=== PATIENT | female | born 1980 ===

== ENCOUNTER 2019-01-19 06:25 | Inpatient (IN) | payer BC ==
[~2019-01-19] VITALS: Ht 157.5 cm; Wt 54.4 kg
[2019-01-19] VITALS (13 sets, daily range): BP systolic 95–107; BP diastolic 57–70
[~2019-01-19 06:25] MED LIST: NKM
[2019-01-19] MEDS ORDERED: cefOXitin Sod 2 GM in D5W 110 ML IVPB ONE (07:00)
[2019-01-19] MEDS ORDERED: Rocuronium Bromide 50mg/5ml Inj IV ONE (07:09)
[2019-01-19] MEDS ORDERED: fentaNYL 100 mcg/2 mL IV ONE ×2 (07:12→08:46)
[2019-01-19] MEDS ORDERED: Lidocaine 1% MPF 10mg/ml 5ml ONE (07:12)
[2019-01-19] MEDS ORDERED: Propofol 200mg/20ml IV ONE (07:12)
[2019-01-19] MEDS ORDERED: Midazolam 2mg/2ml Inj ONE (07:13)
[2019-01-19] MEDS ORDERED: Dexamethasone 4mg/ml vial ONE (07:13)
[2019-01-19] MEDS ORDERED: Ropivacaine 5mg/ml Vial 30ml INJ ONE (07:15)
[2019-01-19] MEDS ORDERED: Bupivacaine 0.5% Inj 30 ml vial INJ ONE (07:15)
--- NOTE | 2019-01-19 07:28 | Anethesia Preoperative Eval ---
Anesthesia Pre-op PMH/ROS General Date of Evaluation: Jan 19, 2019 Time of Evaluation: 07:26 Anesthesiologist: Yesenia Rowland CRNA ASA Score: ASA 2 Mallampati Score Class I : Soft palate, uvula, fauces, pillars visible Class II: Soft palate, uvula, fauces visible Class III: Soft palate, base of uvula visible Class IV: Only hard plate visible Mallampati Classification: Class I Surgeon: Sravan Diagnosis: Uterine fibroids Surgical Procedure: hysteroscopy, open myomectomy Anesthesia History: none Family History: no anesthesia problems Allergies: Coded Allergies: No Known Allergies (Unverified , 01/17/19) Medications: see eMAR Patient NPO?: Yes NPO Date: Jan 18, 2019 NPO Time: 2100 Past Medical History Cardiovascular: Denies: HTN, CAD, [place], valve dz, arrhythmia, other Pulmonary: Denies: asthma, COPD, SHRADDHA, other Gastrointestinal/Genitourinary: Reports: other - uterine fibroids; Denies: GERD, CRI, ESRD Neurologic/Psychiatric: Denies: dementia, CVA, depression/anxiety, TIA, other Endocrine: Denies: DM, hypothyroidism, steroids, other HEENT: Denies: cataract (L), cataract (R), glaucoma, BUR[place] (L), BURNS [place] (R), other Hematology/Immune: Reports: anemia - takes iron; Denies: DVT, bleeding disorder, other Musculoskeletal/Integumentary: Reports: other - chronic lower back pain from epidural 16 years ago, no meds; Denies: OA, RA, DJD, DDD, edema PMH Narrative: as noted above PSxH Narrative: wisdom extractions Anesthesia Pre-op Phys. Exam Physician Exam Last Vital Signs Date Time Temp Pulse Resp B/P (MAP) Pulse Ox O2 Delivery O2 Flow Rate FiO2 01/19/19 07:10 97.8 69 20 96/66 (76) 99 01/19/19 06:52 Room Air Constitutional: NAD Neurologic: other - alert & oriented x 3 Cardiovascular: RRR Respiratory: CTA Gastrointestinal: S/NT/ND Airway Exam Mallampati Score: Class I MO: full Neck: FROM TMD: > 3 FB ROM: full Teeth: intact Dentures: no upper, no lower Anesthesia Pre-op A/P Labs reviewed from OSH, see chart Urine Test Test 01/19/19 06:40 Urine HCG, Qualitative Negative (NEGATIVE) Risk Assessment & Plan Assessment: ASA 2, ok to proceed Plan: Spinal, GA Status Change Before Surgery: No Pre-Antibiotics Drug: Yesenia Jackman CRNA Jan 19, 2019 07:28
[2019-01-19] MEDS ORDERED: NS Irrig 1000ml ONE (07:30)
[2019-01-19] MEDS ORDERED: Sterile Water Irrig 1000ml IRRIG ONE (07:30)
[2019-01-19] MEDS ORDERED: LR 1000ml ONE (07:30)
--- NOTE | 2019-01-19 07:37 | Pre-Procedure Note/Attestation ---
Pre-Procedure Note/Attestation Complete Prior to Procedure Planned Procedure: not applicable Procedure Narrative: Hysteroscopy, dilation and curettage, abdominal myomectomy Indications for Procedure Pre-Operative Diagnosis: Uterine fibroids, heavy vaginal bleeding, pelvic pain Attestation I attest that I discussed the nature of the procedure; its benefits; risks and complications; and alternatives (and the risks and benefits of such alternatives ), prior to the procedure, with the patient (or the patient's legal automotive sales representative). I attest that, if there was a reasonable possibility of needing a blood transfusion, the patient (or the patient's legal automotive sales representative) was given the [facility] standardized written summary, pursuant to the Willian Grif[place] Blood Safety Act ([place] Health and Safety Code # 1645, as amended). I attest that I re-evaluated the patient just prior to the surgery and that there has been no change in the patient's H&P, except as documented below: None Alexia Hinson M.D. Jan 19, 2019 07:37
[2019-01-19] MEDS ORDERED: Morphine Sulfate PF 10 ML ONE (07:42)
[2019-01-19] MEDS ORDERED: Acetaminophen (Non formulary) 100 ML IV ONE (09:00)
[2019-01-19] MEDS ORDERED: DiphenhydrAMINE 50mg/ml Inj IVP PRN (09:00)
[2019-01-19] MEDS ORDERED: Metoclopramide 10mg/2ml Inj IVP PRN (09:00)
[2019-01-19] MEDS ORDERED: Meperidine 25mg/0.5ml Inj (FOR RIGORS ONLY) IV PRN (09:00)
[2019-01-19] MEDS ORDERED: Metoclopramide 10mg/2ml Inj ONE (09:27)
[2019-01-19] MEDS ORDERED: Ketorolac 30mg Inj ONE (09:31)
[2019-01-19] MEDS ORDERED: Neostigmine 1mg/ml 10ml Inj ONE (10:14)
[2019-01-19] MEDS ORDERED: Glycopyrrolate 0.2mg/ml 1ml Vial ONE (10:14)
--- NOTE | 2019-01-19 10:17 | Immediate Post-Op Evaluation ---
Immediate Post-Op Evalulation Immediate Post-Op Evalulation Procedure: Hysteroscopy, open myomectomy Date of Evaluation: Jan 19, 2019 Time of Evaluation: 11:25 IV Fluids: LR 2000 ml Estimated Blood Loss: 100 ml Urinary Output: 300 ml Blood Pressure Systolic: 103 Blood Pressure Diastolic: 63 Pulse Rate: 85 Respiratory Rate: 16 O2 Sat by Pulse Oximetry: 100 Temperature (Fahrenheit): 97.6 Pain Score (1-10): 0 Nausea: No Vomiting: No Complications none Patient Status: awake, reacts, patent, extubated Hydration Status: adequate Drug: cefazolin 2 gm IV Given Within 1 Hr of Incision: Yes Time Given: 08:05 Yesenia Rowland CRNA Jan 19, 2019 10:17
[2019-01-19] MEDS ORDERED: Interceed TOPIC ONE (10:38)
--- NOTE | 2019-01-19 11:12 | Operative Note - PDOC ---
Operative Note Operative Note Date of Operation/Procedure: Jan 19, 2019 Chief Complaint: Heavy vaginal bleeding, pelvic pain, fibroids Pre-op Diagnosis: Uterine fibroids, heavy vaginal bleeding, pelvic pain Procedure: Hysteroscopy, abdominal myomectomy Post-op Diagnosis: Uterine fibroids Post-op Diagnosis: same as pre-op Surgeon: Alexia Hinson MD [employer] Professor: Marino Ley MD Anesthesiologist: Yesenia Rowland CRNA Anesthesia: general Specimen: yes - Uterine fibroids Complications: none Condition: stable Fluids: 2000ml crystalloid Estimated Blood Loss: volume - 100ml Drains: other - Hurley catheter (300cc yellow urine out at end of procedure Implant(s) used?: No Indications for Procedure Uterine fibroids, AUB-L, pelvic pain Description of Procedure The R/B/A of the procedure were discussed with the patient and informed consent was obtained. The patient was taken to the operating room with IV in place. Spinal anesthesia was attempted but failed. SCD stockings were in place. General anesthesia was administered without difficulty. The patient was placed in dorsal lithotomy and then prepped and draped in the usual sterile fashion. Hurley catheter was placed. A time out was performed to verify patient and procedure. A weighted speculum was inserted into the vagina and a right angle retractor was placed to visualize the cervix. The anterior lip of the cervix was grasped with a single-toothed tenaculum. The cervix was sequentially dilated to accommodate the diagnostic hysteroscope. The uterine cavity was visualized and an intramural fibroid was noted on the left anterior surface of the cavity. The lining appeared thin and no other abnormalities were noted. The hysteroscope was withdrawn and the uterus was sounded to 8cm. A uterine manipulator was placed, stabilized, and attention was then turned to the abdomen. A 7cm Pfannenstiel incision was made with the scalpel. This was carrier down through the subcutaneous tissue to the fascia with the bovie. The fascia was incised at the midline and extended laterally with the bovie. The fascia was from the underlying rectus tissue superiorly and inferiorly using blunt dissection and with the bovie. The peritoneum was identified, entered bluntly and stretched, with care being taken to identify and avoid the bladder. The Germain retractor was placed and stabilized without complication. The uterus was inspected and the uterine fibroids were palpated. There was a 3-4cm anterior subserosal fibroid noted. The base of the fibroid was injected with dilute vasopressin and the serosa overlying the fibroid was incised. The fibroid was dissected away from the myometrium using blunt dissection and the bovie. Once the fibroid was removed, the myometrium was reapproximated using Vicryl suture. The largest fibroid was located on the left posterior uterine body measuring approximately 7-8cm. Dilute vasopressin was injected and the overlying serosa and myometrium were incised. The fibroid was hand-morcellated and ultimately removed in its entirety at its base. The myometrium was reapproximated with Vicryl suture. The 3rd fibroid was located in the anterior intramural space on the left, measuring approximately 6-7cm The same procedure was performed to remove this fibroid. The endometrial cavity was breached during removal and reapproximated with Vicryl suture. The myometrium was reapproximated with Vicryl suture. The uterus was inspected for hemostasis. Figure of eight sutures were used to obtain excellent hemostasis. The abdomen was irrigated with warm saline. The uterus was again inspected and noted to be hemostatic. The Germain retractor was removed without incident. A manual and visual sweep was performed. The anterior peritoneum was closed with running suture of 2-0 Vicryl and the rectus muscles were reapproximated with interrupted mattress sutures of 2-0 Vicryl. Excellent hemostasis was noted. The fascia was closed with running 0-Vicryl. The subcutaneous layer was irrigated, all bleeding vessels were cauterized, and then closed with running 3-0 Plain suture. The skin was closed with 4-0 Moncryl in a subcuticular fashion. Steri strips and a pressure dressing were applied. Attention was turned to the vagina and the uterine manipulator was removed. All instrument, sponge, and needle counts were correct x 3. The patient was brought to the recovery room in stable condition. I was present and participated in all parts of the procedure. Alexia Hinson M.D. Jan 19, 2019 11:12
[2019-01-19] MEDS: Hydromorphone 0.5mg/0.5ml inj IVP PRN ×2 (11:40→12:06)
[2019-01-19] MEDS ORDERED: HYDROcodone/Acetamin 5/325 tab ORAL PRN (12:54)
[2019-01-19] MEDS ORDERED: Hydromorphone 0.5mg/0.5ml inj IVP PRN (12:54)
[2019-01-19] MEDS: D5 1/2NS w/KCl 20mEq 1,000 ML IV SCH ×2 (14:36→22:22)
[2019-01-19] MEDS: Docusate 100mg cap ORAL SCH (17:14)
[2019-01-19] MEDS: HYDROcodone/Acetamin 10/325 tab ORAL PRN ×2 (17:59→22:20)
[2019-01-19] MEDS ORDERED: Simethicone 80mg tab ORAL PRN (18:00)
[2019-01-19] MEDS ORDERED: Ketorolac 30mg Inj IV SCH (18:00)
[2019-01-19] MEDS ORDERED: Ketorolac 30mg Inj IM SCH (18:00)
--- NOTE | 2019-01-19 18:05 | General Progress Note ---
Progress Note Progress Note GYNECOLOGY PROGRESS NOTE - POD#0 Patient s/p abdominal myomectomy, doing well. Some nausea, zofran given. Pain moderate/severe, Toradol given, will offer Gladbrook for pain control. Bryan in situ. No flatus. No ambulation yet, but encouraged to do so tonight. Vitals reviewed, WNL Exam: Gen: NAD, appears uncomfortable HEENT: OP clear, MM somewhat dry CV: No tachycardia Pulm: No increased work of breathing Abd: Soft, appropriately tender, non-distended, bandage c/d/i Perineum: some bleeding, not too heavy, bryan in situ Labs: BMP and CBC to be drawn in AM 38yo POD#1 s/p abdominal myomectomy, stable and in NAD - Continue Gladbrook prn and Toradol IV q6 for pain - D/C bryan in AM - Continue IV fluids until after 1st void - Diet as tolerated - Simethicone ordered for gas pain/bloating - Encouraged ambulation - will try to get OOB to chair tonight - Will assess patient again tomorrow in AM, anticipate d/c home once patient is meeting all post-op milestones Alexia Hinson M.D. Jan 19, 2019 18:05
[2019-01-20] VITALS: BP 99/56
[2019-01-20 04:00] VITALS: BP 112/64
[2019-01-20] MEDS: HYDROcodone/Acetamin 10/325 tab ORAL PRN ×2 (04:44→16:25)
[2019-01-20 05:48] LABS: BASOPHILS % (AUTO) 0.2 % (0.0-2.0); EOSINOPHILS % (AUTO) 0.3 % (0.0-3.0); HEMATOCRIT 28.3 % (37.0-47.0); HEMOGLOBIN 9.7 G/DL (12.0-16.0); LYMPHOCYTES % (AUTO) 15.5 % (20.0-45.0); MEAN CORPUSCULAR VOLUME 90 FL (80-99); MONOCYTES % (AUTO) 11.4 % (1.0-10.0); NEUTROPHILS % (AUTO) 72.7 % (45.0-75.0); PLATELET COUNT 180 K/UL (150-450); RED BLOOD COUNT 3.15 M/UL (4.20-5.40); RED CELL DISTRIBUTION WIDTH 11.8 % (11.6-14.8); WHITE BLOOD COUNT 12.4 K/UL (4.8-10.8)
[2019-01-20] MEDS: D5 1/2NS w/KCl 20mEq 1,000 ML IV SCH (05:57)
[2019-01-20] MEDS: Ketorolac 30mg Inj IV SCH ×4 (05:57→17:53)
[2019-01-20 06:01] LABS: ANION GAP 7 mmol/L (5-15); BLOOD UREA NITROGEN 6 mg/dL (7-18); CALCIUM 8.1 MG/DL (8.5-10.1); CARBON DIOXIDE 26 MMOL/L (21-32); CHLORIDE 107 MMOL/L (98-107); CREATININE 0.7 MG/DL (0.55-1.30); POTASSIUM 4.1 MMOL/L (3.5-5.1); SODIUM 140 MMOL/L (136-145)
[2019-01-20 08:00] VITALS: BP 102/58
[2019-01-20] MEDS: Docusate 100mg cap ORAL SCH ×2 (08:05→17:53)
[2019-01-20 12:00] VITALS: BP 97/63
--- NOTE | 2019-01-20 13:02 | General Progress Note ---
Progress Note Progress Note GYNECOLOGY PROGRESS NOTE - POD#1 Patient s/p abdominal myomectomy, doing well. Some nausea, zofran given. Pain well controlled on current regimen. Patient is ambulating, voiding, however not passing flatus (however patient reports that she typically doesn't pass gas at home). No other issues. Tolerating small PO. Vitals reviewed, WNL Exam: Gen: NAD, appears uncomfortable HEENT: OP clear, MM moist CV: No tachycardia Pulm: No increased work of breathing Abd: Soft, appropriately tender, mildly-distended, bandage removed, steris c/d/i Perineum: some bleeding, not too heavy, bryan in situ Labs: Test 01/20/19 04:45 White Blood Count 12.4 K/UL (4.8-10.8) H Red Blood Count 3.15 M/UL (4.20-5.40) L Hemoglobin 9.7 G/DL (12.0-16.0) L Hematocrit 28.3 % (37.0-47.0) L Mean Corpuscular Volume 90 FL (80-99) Mean Corpuscular Hemoglobin 30.9 PG (27.0-31.0) Mean Corpuscular Hemoglobin Concent 34.4 G/DL (32.0-36.0) Red Cell Distribution Width 11.8 % (11.6-14.8) Platelet Count 180 K/UL (150-450) Mean Platelet Volume 6.1 FL (6.5-10.1) L Neutrophils (%) (Auto) 72.7 % (45.0-75.0) Lymphocytes (%) (Auto) 15.5 % (20.0-45.0) L Monocytes (%) (Auto) 11.4 % (1.0-10.0) H Eosinophils (%) (Auto) 0.3 % (0.0-3.0) Basophils (%) (Auto) 0.2 % (0.0-2.0) Sodium Level 140 MMOL/L (136-145) Potassium Level 4.1 MMOL/L (3.5-5.1) Chloride Level 107 MMOL/L (98-107) Carbon Dioxide Level 26 MMOL/L (21-32) Anion Gap 7 mmol/L (5-15) Blood Urea Nitrogen 6 mg/dL (7-18) L Creatinine 0.7 MG/DL (0.55-1.30) Estimat Glomerular Filtration Rate > 60 mL/min (>60) Glucose Level 112 MG/DL (74-106) H Calcium Level 8.1 MG/DL (8.5-10.1) L 38yo POD#1 s/p abdominal myomectomy, stable and in NAD - Continue Excel prn and Toradol IV q6 for pain - Diet as tolerated - Encouraged ambulation - Anticipate d/c home later tonight if no increased distention over the course of the day Alexia Hinson M.D. Jan 20, 2019 13:02
--- NOTE | 2019-01-20 13:07 | 48 Hour Post Anesthesia Eval ---
Post Anesthesia Evaluation Procedure: Hysteroscopy, open myomectomy Date of Evaluation: Jan 20, 2019 Time of Evaluation: 12:51 Blood Pressure Systolic: 97 0: 63 Pulse Rate: 78 Respiratory Rate: 16 Temperature (Fahrenheit): 98.2 O2 Sat by Pulse Oximetry: 98 Airway: patent Nausea: No Vomiting: No Pain Intensity: 2 Hydration Status: adequate Cardiopulmonary Status: Stable Mental Status/LOC: patient returned to baseline Follow-up Care/Observations: 0 Post-Anesthesia Complications: 0 Follow-up care needed: N/A Karl Pearson MD Jan 20, 2019 13:07
[2019-01-20 16:00] VITALS: BP 94/61
[2019-01-20] MEDS ORDERED: NORCO 5-325 TA1 EACH ORAL (17:20)
[2019-01-20] MEDS ORDERED: ZOFRAN4 M1 ORAL (17:20)
--- NOTE | 2019-01-20 17:22 | General Progress Note ---
Progress Note Progress Note BRIEF PROGRESS NOTE Patient cleared for discharge. Abdominal distention stable, passing small flatus. Pain well controlled Strict return precautions provided, RTO 2w for post-op check. Alexia Hinson M.D. Jan 20, 2019 17:22
--- NOTE | 2019-01-20 19:42 | Discharge Summary ---
Discharge Summary Hospital Course Date of Admission Jan 19, 2019 at 06:25 Date of Discharge Jan 20, 2019 at 18:05 Admitting Diagnosis Heavy vaginal bleeding, pelvic pain, fibroids Reason for Hospitalization: Elective surgery BENITA Wu is a 38 year old female who was admitted on Jan 19, 2019 at 06: 25 for heavy vaginal bleeding, pelvic pain, fibroids. Patient was admitted for elective surgery. Procedures s/p 01/20/[address] Hinson Hysteroscopy, abdominal myomectomy Hospital Course status post surgery course of recovery uneventful initially IV fluids s/p perioperative antibiotic incision clean dry and intact pain management addressed ; pain controlled Remain hemodynamically stable ambulated DVT prophylaxis with SCD provided use of incentive spirometry was encouraged while in the bed tolerated diet , IV fluids discontinued antiemetics initially provided for nausea, nausea resolved Hurley catheter was discontinued the next day Patient was able to void without difficulties gas pain addressed was passing flatus bowel regimen instituted patient was stable for discharge discharge instructions provided follow up with surgeon in the office as outpatient in 2 weeks as advised FINAL DIAGNOSES Uterine fibroids s/p Hysteroscopy, abdominal myomectomy Discharge Medications New Medications: Hydrocodone Bit/Acetaminophen 5-325* ([place] 5-325*) 1 Each Tablet 1 TAB ORAL Q4H PRN, #10 TAB 0 Refills Ondansetron (Zofran) 4 Mg Tablet 4 MG ORAL Q6H PRN for 10 Days, TAB Discharge Condition Upon Discharge: stable Discharge Disposition Patient was discharged home Discharge Instructions Discharge Instructions Special Instructions I have been assigned to complete a D/C Summary on this account. I was not involved in the patient management Flavia Borrego NP Jan 20, 2019 19:42
== END 2019-01-20 18:05 | disposition home or self-care (01) | DRG 743 ==
LOC: SDSOVERFLO 06:25 → EDSTATUS 07:30 → 3E 12:30
PROC: 0UB90ZZ Excision of Uterus, Open Approach (ICD-10-PCS; principal; 2019-01-19 07:30)
PROC: 0UJD8ZZ Inspection of Uterus and Cervix, Via Natural or Artificial Opening Endoscopic (ICD-10-PCS; principal; 2019-01-19 07:30)
DX: D25.1 Intramural leiomyoma of uterus (principal); N92.0 Excessive and frequent menstruation with regular cycle; D25.2 Subserosal leiomyoma of uterus
CPT/HCPCS: 36415; 80048; 81025; 85025; 86850; 86900; 86901; 87081; 94003; 94150; J2250; J2405; J2710; J2765; J7030